=== PATIENT | male | born 1960 | race Caucasian/White ===

== ENCOUNTER 2016-10-28 12:35 | Emergency (ER) | payer MEDICARE ==
[~2016-10-28] VITALS: Ht 177.8 cm; Wt 80.0 kg
[2016-10-28 12:36] VITALS: BP 154/80; PULSE 88; RESP 20; TEMP 97.9; O2SAT 97
--- NOTE | 2016-10-28 14:58 | PD ---
HPI Chief Complaint: Pain: Acute or Chronic Time Seen by Provider: 14:54 Travel History International Travel<30 days: No Contact w/Intl Traveler<30days: No Traveled to known affect area: No History of Present Illness HPI Patient is a 55-year-old male presenting to emergency for evaluation of left neck and shoulder pain. Patient states it started on Friday, he describes it as aching, tight, sore. He states the pain radiates from his shoulder to his neck posteriorly. Patient has been using icy hot and Biofreeze with no relief of symptoms. He denies any injury or trauma. He denies any chest pain, shortness of breath, headaches, fevers. He reports pain as a 10/10. PFSH Past Medical History Medical History: Denies Significant Hx ?: Not Social History Alcohol Use: No Tobacco Use: No Substance Use: No Allergies-Medications (Allergen,Severity, Reaction): Coded Allergies: No Known Allergies (Unverified , 10/28/16) Review of Systems Except as stated in HPI: all other systems reviewed are Neg Musculoskeletal: Positive: Myalgias, Cramping, Pain Physical Exam Narrative GENERAL: Well-nourished, well-developed patient. SKIN: Warm and dry. HEAD: Normocephalic. EYES: No scleral icterus. No injection or drainage. NECK: Supple, trachea midline. No JVD or lymphadenopathy. Tenderness to palpation in paraspinal musculature in the cervical region on the left side as well as supraclavicular area on the left. Decreased range of motion with rotation to the left and extension. CARDIOVASCULAR: Regular rate and rhythm without murmurs, gallops, or rubs. RESPIRATORY: Breath sounds equal bilaterally. No accessory muscle use. GASTROINTESTINAL: Abdomen soft, non-tender, nondistended. MUSCULOSKELETAL: No cyanosis, or edema. BACK: Nontender without obvious deformity. No CVA tenderness. Data Data Last Documented VS Vital Signs Date Time Temp Pulse Resp B/P Pulse Ox O2 Delivery O2 Flow Rate FiO2 10/28/16 16:16 18 10/28/16 16:15 85 120/78 97 10/28/16 12:36 97.9 Room Air Orders Ketorolac Inj (Toradol Inj) (10/28/16 15:00) Orphenadrine Inj (Norflex Inj) (10/28/16 15:00) Methylprednisolone So Succ Inj (Solumedr (10/28/16 15:00) MDM Medical Decision Making Medical Screen Exam Complete: Yes Emergency Medical Condition: Yes Interpretation(s) Vital Signs Date Time Temp Pulse Resp B/P Pulse Ox O2 Delivery O2 Flow Rate FiO2 10/28/16 12:36 97.9 88 20 154/80 97 Room Air Differential Diagnosis Spasm versus strain versus sprain versus torticollis versus other Narrative Course Patient is a 55-year-old male presenting to emergency Department with 4 days of left neck pain and spasms. Medications ordered. Patient reassessed at 1600. Patient reports improvement in pain, he is currently able to move his neck more fluidly than he was prior to medication administration. Patient will be provided with prescriptions, he is encouraged to follow-up with primary care return to emergency department for any new or worsening symptoms. He was further encouraged to continue range of motion exercises, apply warm moist heat to affected area, avoid exacerbating activities. Patient verbalized understanding of these instructions. Patient stable for discharge. Diagnosis Primary Impression: Cervical paraspinal muscle spasm Referrals: Primary Care Physician Patient Instructions: General Instructions, Muscle Spasm (ED) Additional Instructions: Follow-up with your primary doctor Medications as directed Apply warm moist heat to affected area, continue range of motion exercises, avoid exacerbating activities, avoid bed rest Return to emergency department for any new or worsening symptoms Med/Other Pt SpecificInfo: Prescription(s) given Scripts Prednisone 50 Mg Tab50 Mg PO DAILY 3 Days Ref 0 Prov:Zuly Gutierres 10/28/16 Cyclobenzaprine (Flexeril)10 Mg Tab10 Mg PO TID PRN (MUSCLE SPASM) 10 Days Ref 0 Prov:Zuly Gutierres 10/28/16 Ibuprofen 800 Mg [id number] Mg PO Q8H PRN (Pain/Inflammation) 10 Days Ref 0 Prov:Zuly Gutierres 10/28/16 Disposition: 01 DISCHARGE HOME Condition: Stable Zuly Gutierres Oct 28, 2016 14:58
[2016-10-28] MEDS ORDERED: ORPHENADRINE INJ 60 MG/2 ML AMP IM ONE (15:00)
[2016-10-28] MEDS ORDERED: KETOROLAC TROMETHAMINE 60 MG/2 ML (IM) VIAL IM ONE (15:00)
[2016-10-28] MEDS ORDERED: methylPREDNISolone SOD SUCC 125 MG/2 ML VIAL IM ONE (15:00)
[2016-10-28 16:15] VITALS: BP 120/78; PULSE 85; RESP 18; O2SAT 97
[2016-10-28 16:16] VITALS: RESP 18
[2016-10-28] MEDS ORDERED: IBUP800T23 PO (16:31)
[2016-10-28] MEDS ORDERED: CYCL1TAB29 PO (16:31)
[2016-10-28] MEDS ORDERED: PRED50 PO (16:31)
--- NOTE | 2016-10-29 10:21 | EKG ---
Date Performed: 10/28/2016 Time Performed: 14:28:45 PTAGE: 55 years EKG: Sinus rhythm MARKED LEFT AXIS DEVIATION LOW QRS VOLTAGE IN EXTREMITY LEADS PATTERN CONSISTENT WITH PULMONARY DISE ASE ABNORMAL ECG NO PREVIOUS TRACING DOCTOR: Randy Hanna Interpretating Date/Time 10/29/2016 10:18:55
== END 2016-10-28 16:44 | disposition home or self-care (01) ==
LOC: NEPB 12:35
DX: M62.830 Muscle spasm of back (principal); M62.838 Other muscle spasm; M54.2 Cervicalgia; M25.512 Pain in left shoulder; R94.31 Abnormal electrocardiogram [ECG] [EKG]
CPT/HCPCS: 93005; 96372; 99283; J1885; J2360; J2930